=== PATIENT | female | born 1985 | race Caucasian/White ===

== ENCOUNTER 2018-06-11 12:34 | Emergency (ER) | payer SELFPAY ==
[~2018-06-11] VITALS: Ht 154.9 cm; Wt 105.0 kg
[2018-06-11] MEDS ORDERED: ONDANSETRON 4MG ODT PO ONE (14:15)
[2018-06-11 14:53] LABS: BASOPHILS % 0.1 % (0.0-2.0); EOSINOPHILS % 0.6 % (0.0-5.0); HEMATOCRIT. 36.5 % (36.0-48.0); HEMOGLOBIN. 12.4 g/dL (12.0-16.0); LYMPHOCYTES % 10.1 % (20.0-50.0); MEAN CORPUSCULAR HEMOGLOBIN 29.7 pg (28.0-32.0); MEAN CORPUSCULAR VOLUME 87.5 fL (81.0-99.0); MEAN PLATELET VOLUME 7.6 fl (7.4-10.4); MONOCYTES % 3.9 % (2.0-8.0); NEUTROPHILS % 85.3 % (40.0-76.0); PLATELET 255 x1000/uL (130-400); RED BLOOD CELL COUNT 4.18 mill/uL (4.2-5.4); RED CELL DISTRIBUTION WIDTH 15.1 % (11.6-14.6)
[2018-06-11 14:53] LABS: CLARITY URINE CLOUDY (CLEAR); COLOR URINE YELLOW (YELLOW); KETONES URINE TRACE (NEGATIVE); LEUKOCYTE ESTERASE URINE 3+ (NEGATIVE); NITRITE URINE NEGATIVE (NEGATIVE); OCCULT BLOOD URINE NEGATIVE (NEGATIVE); PROTEIN URINE NEGATIVE (NEGATIVE); SPECIFIC GRAVITY URINE 1.024 (1.005-1.030)
[2018-06-11 14:57] LABS: CHLORIDE 105 mEq/L (98-107)
[2018-06-11 15:05] LABS: HCG SCREEN POSITIVE
[2018-06-11] MEDS ORDERED: NITROFURANTOIN 100MG M/M CAPSULE PO ONE (15:30)
[2018-06-11 18:00] VITALS: BP 115/64
== END 2018-06-11 18:44 | disposition home or self-care (01) ==
LOC: ER 12:34
DX: O23.13 Infections of bladder in pregnancy, third trimester (principal); O21.2 Late vomiting of pregnancy; O26.893 Other specified pregnancy related conditions, third trimester; R03.0 Elevated blood-pressure reading, without diagnosis of hypertension; R19.7 Diarrhea, unspecified; Z3A.26 26 weeks gestation of pregnancy
CPT/HCPCS: 36415; 76805; 80053; 81003; 83690; 84702; 84703; 85025; 87086; 99285; Q0162